=== PATIENT | female | born 1985 | race Caucasian/White ===

== ENCOUNTER 2023-04-15 09:17 | Emergency (ER) | payer OTHER, SELFPAY ==
--- NOTE | ~2023-04-15 | CT_ITS ---
EXAMINATION: CT soft tissue neck w con DATE: 04/15/2023 10:55 INDICATION: Right neck swelling. Strep throat. TECHNIQUE: Computed tomography (CT) of the neck was performed with 75 mL Omnipaque-350 intravenous co ntrast. Automated exposure control and iterative reconstruction technique were employed. The dose-judah gth product was 534.33 mGy-cm. COMPARISON: None FINDINGS: There is enlargement of right palatine tonsil. There is a 6 mm peritonsillar abscess. The u vula is enlarged. There are no pathologically enlarged lymph nodes. There is mild mucosal thickening in the paranasal sinuses. The mastoid air cells are normal. There is mild cervical spondylosis. IMPRESSION: 1. Enlarged right palatine tonsil and uvula with 6 mm right peritonsillar abscess. Reviewed, dictated and finalized at location A. IMPRESSION: 1. Enlarged right palatine tonsil and uvula with 6 mm right peritonsillar absce ss.
[2023-04-15 09:17] VITALS: BP 118/73; PULSE 70; RESP 14; TEMP 36.5; O2SAT 100
[2023-04-15] MEDS: SODIUM CHLORIDE 0.9% IV 1,000 ML 999 ML IV CONT (09:45)
[2023-04-15 10:13] VITALS: BP 133/78; PULSE 67; RESP 18; O2SAT 100
[2023-04-15 10:19] LABS: Basophils Percent Auto 0.3 % (0.2-1.2); Eosinophils Percent Auto 0.3 % (0-4.4); Hematocrit 38.2 % (37.0-47.0); Hemoglobin 12.5 g/dL (12.0-15.0); Immature Granulocyte Absolute 0.08 K/mm3 (0.00-0.031); Immature Granulocyte Percent A 0.7 % (0-0.5); Lymphocytes Percent Auto 6.6 % (18.3-44.2); Mean Corpuscular HGB Conc 32.7 g/dl (32-36); Mean Corpuscular Hemoglobin 30.9 pg (26-34); Mean Corpuscular Volume 94.6 fl (80-100); Mean Platelet Volume 10.6 fl (7.4-10.4); Monocytes Absolute Auto 0.8 K/mm3 (0.1-0.6); Monocytes Percent Auto 6.8 % (2.6-8.5); Neutrophils Absolute Auto 10.4 K/mm3 (1.3-6.7); Neutrophils Percent Auto 85.3 % (45.5-73.1); Platelet Count Result 165 k/mm3 (150-375); Red Blood Count 4.04 M/mm3 (4.2-5.4); Red Cell Distribution Width 11.9 % (11.5-14.5); White Blood Count 12.2 K/mm3 (4.5-10.0)
[2023-04-15 10:30] LABS: Alanine Aminotransferase 16 U/L (6-35); Albumin Level 3.9 g/dL (3.5-5.1); Alkaline Phosphatase 40 U/L (38-126); Anion Gap 4 mmol/L (8-16); Aspartate Amino Transferase 22 U/L (14-36); Blood Urea Nitrogen 11 mg/dL (7-17); Calcium 8.3 mg/dL (8.4-10.2); Carbon Dioxide 25 mmol/L (22-30); Chloride 104 mmol/L (98-107); Estimated CRCL calculation 108 ml/min; Estimated Glomerular Filt Rate > 60; Glucose 104 mg/dL (65-110); Potassium 3.7 mmol/L (3.4-5.0); Sodium 133 mmol/L (137-145)
--- NOTE | 2023-04-15 11:27 | ED.GENADULT ---
HPI - General Adult General Chief complaint: Unspecified Stated complaint: strep, right sided neck pain Time Seen by Provider: 04/15/23 09:27 History of Present Illness HPI narrative: Patient is a 37-year-old female who presents to the ER with sore throat. Ongoing over the last day. Was seen in urgent care and swabbed for strep which was positive. Due to pain over the right side of the patient's neck and her muffled voice she was sent here. No history of [employer]TE[employer] ENGINE[employer]. No difficulty with tolerating her current secretions though she does have pain with swallowing. She is having fevers. No chest pain. No stridor. Related Data Home Medications Medication Instructions Recorded Confirmed calcium carbonate 600 mg-vitamin 1 tablet PO DAILY 07/05/19 07/05/19 D3 10 mcg (400 unit) tablet (Calcium with Vitamin D) Allergies Allergy/AdvReac Type Severity Reaction Status Date / Time No Known Allergies Allergy Verified 04/15/23 09:22 Review of Systems Review of Systems: All systems reviewed & are unremarkable except as noted in HPI and below Constitutional: Constitutional: Reports chills and Reports fever(s) ENT: Denies nasal congestion, Reports neck pain, Reports sore throat and Reports throat swelling Cardiovascular: Cardiovascular: Denies chest pain and Denies rapid heart rate Respiratory: Respiratory: Denies cough, Denies dyspnea and Denies wheezing Gastrointestinal: Gastrointestinal: Denies abdominal pain, Denies nausea and Denies vomiting PMFSH Past Medical History Medical History (Updated 04/15/23 @ 19:49 by Jaya Rushing MD) Healthy female adult Surgical History Surgical History (Updated 04/15/23 @ 19:49 by Jaya Rushing MD) H/O hernia repair Family History Family History (Updated 03/22/17 @ 08:11 by DOCTOR UNKNOWN) Mother Family history of malignant neoplasm of breast in first degree relative Other Family history of malignant neoplasm Social History Social History Smoking status: Never smoker Alcohol intake: current Exam Narrative: GENERAL: Well-appearing, well-nourished, and in no acute distress. HEAD: Normocephalic, atraumatic. ENT: Mucous membranes moist. Mild erythema right tonsillar region with uvula midline and very edematous. No midline shift. Posterior oropharynx easily visualized. Tolerating oral secretions. NECK: Mild right-sided anterior cervical chain tenderness without swelling or redness of the skin. CHEST: Clear to auscultation. No respiratory distress. HEART: Regular rate and rhythm. Normal peripheral pulses. EXTREMITIES: Normal range of motion. No edema. SKIN: Warm, dry, no rash. NEURO: Alert and oriented x3. PSYCH: Normal mood and affect. Course Course Emergency Course: Discussed case with Dr. Burrows with ENT. Recommends discharging patient home with oral Solu-Medrol as he thinks continued steroid therapy may benefit patient's swelling. He does not feel the [employer]INE[employer] is large enough to drain at this time and patient should be started on Augmentin. He would like the patient to follow-up in 2 days. Return precautions discussed with the patient who verbalized understanding as did her . Vital Signs Vital signs: Vital Signs Temperature 97.7 F 04/15/23 09:17 Pulse Rate 70 04/15/23 09:17 Respiratory Rate 14 04/15/23 09:17 Blood Pressure 118/73 04/15/23 09:17 Pulse Oximetry 100 04/15/23 09:17 Oxygen Delivery Room Air 04/15/23 09:17 Temperature 97.7 F 04/15/23 09:17 Pulse Rate 74 04/15/23 11:35 Respiratory Rate 16 04/15/23 11:35 Blood Pressure 117/75 04/15/23 11:35 Pulse Oximetry 98 04/15/23 11:35 Oxygen Delivery Room Air 04/15/23 09:17 Medical Decision Making Vital Signs Vital Signs: Vital Signs Temperature 97.7 F 04/15/23 09:17 Pulse Rate 70 04/15/23 09:17 Respiratory Rate 14 04/15/23 09:17 Blood Pressure 118/73 04/15/23 09:17 Pulse Oximetry 100 04/15/23 09:17
[2023-04-15 11:35] VITALS: BP 117/75; PULSE 74; RESP 16; O2SAT 98
== END 2023-04-15 13:19 | disposition home or self-care (01) ==
PROVIDERS: Emergency Provider Emergency Medicine
DX: J36 Peritonsillar abscess (principal); K12.2 Cellulitis and abscess of mouth
CPT/HCPCS: 36415; 70491; 80053; 81025; 85025; 96361; 96374; 99284; J1100; J7030; Q9967

== ENCOUNTER 2023-04-21 12:05 | Emergency (ER) | payer OTHER, SELFPAY ==
--- NOTE | ~2023-04-21 | CT_ITS ---
EXAMINATION: CT soft tissue neck w con DATE: 04/21/2023 14:15 INDICATION: Right-sided throat swelling and pain. TECHNIQUE: Computed tomography (CT) of the neck was performed with 75 mL Omnipaque-350 intravenous co ntrast. Automated exposure control and iterative reconstruction technique were employed. The dose-judah gth product was 509.31 mGy-cm. COMPARISON: Neck CT 04/16/2023 FINDINGS: There is enlargement of the right palatine tonsil and soft palate with central low attenuat ion measuring 14 x 8 mm, consistent with abscess. There are no pathologically enlarged lymph nodes. T here is plaque in the proximal internal carotid arteries with 0% stenosis relative to normal distal a rtery lumen diameters. There is mild mucosal thickening in the paranasal sinuses. The mastoid air alvarado ls are normal. There is mild cervical spondylosis. IMPRESSION: 1. Enlargement of the right palatine tonsil and soft palate with 14 x 8 mm abscess with interval wors ening. Reviewed, dictated and finalized at location A. IMPRESSION: 1. Enlargement of the right palatine tonsil and soft palate with 14 x 8 mm absc ess with interval worsening.
[2023-04-21 12:06] VITALS: BP 120/77; PULSE 61; RESP 16; TEMP 36.4; O2SAT 97
--- NOTE | 2023-04-21 12:55 | ED.GENADULT ---
HPI - General Adult General Chief complaint: Unspecified Stated complaint: strep, throat abcess Time Seen by Provider: 04/21/23 12:54 History of Present Illness HPI narrative: Patient is a 37-year-old female with no significant past medical history here today with throat swelling and difficulty swallowing. She was seen here approximately 1 week ago at that time she was diagnosed with a small peritonsillar abscess and strep throat and was started on Augmentin. She notes that she initially was feeling quite a bit better and did follow-up with the ENT last Saturday and they noted that everything looked great at that time. Over the last few days she has now worsened. She notes that she feels similar to when she presented last week with throat swelling and difficulty swallowing. She notes significant pain with swallowing. No shortness of breath or stridor. No fever chills. She continues to take her augmentin and is on the last day of her medrol dose pack. She notes that the pain and swelling seem to be isolated to the right side which is where it was located last week. No history of prior before last week. No history of poor dentition, recent dental procedures or recurrent dental infections. Related Data Home Medications Medication Instructions Recorded Confirmed calcium carbonate 600 mg-vitamin 1 tablet PO DAILY 07/05/19 07/05/19 D3 10 mcg (400 unit) tablet (Calcium with Vitamin D) Allergies Allergy/AdvReac Type Severity Reaction Status Date / Time No Known Allergies Allergy Verified 04/15/23 09:22 Review of Systems Review of Systems: CONSTITUTIONAL: Denies fever, chills, or sweats. EYES: Denies visual changes, redness, or discharge. ENT: Denies rhinorrhea, congestion. Has sore throat and difficulty swallowing. No stridor. CARDIOVASCULAR: Denies chest pain, palpitations, or edema. RESPIRATORY: Denies cough or dyspnea. GASTROINTESTINAL: Denies abdominal pain, nausea, vomiting, or diarrhea. SKIN: Denies rash or itching. MUSCULOSKELETAL: Denies back pain, joint pain, or myalgia. NEUROLOGIC: Denies headache, numbness, or weakness. [facility] Past Medical History Medical History (Updated 04/21/23 @ 15:13 by Yecenia Campbell MD) Healthy female adult Surgical History Surgical History (Updated 04/15/23 @ 19:49 by Jaya Rushing MD) H/O hernia repair Family History Family History (Updated 03/22/17 @ 08:11 by DOCTOR UNKNOWN) Mother Family history of malignant neoplasm of breast in first degree relative Other Family history of malignant neoplasm Social History Social History Smoking status: Never smoker Alcohol intake: current Exam Narrative: GENERAL: Well-appearing, well-nourished, and in no acute distress. HEAD: Normocephalic, atraumatic. EYES: PERRLA and EOMI. ENT: Nares clear. Mucous membranes moist. Peritonsillar fullness on the right side with rightward deviation of the uvula. Trismus present. Right anterior cervical lymphadenopathy. NECK: Supple. CHEST: Clear to auscultation. No respiratory distress. HEART: Regular rate and rhythm. Normal peripheral pulses. ABDOMEN: Soft, nontender, nondistended. EXTREMITIES: Normal range of motion. No edema. SKIN: Warm, dry, no rash. NEURO: No focal deficits. Alert and oriented x3. PSYCH: Normal mood and affect. Course Course Emergency Course: Chart review performed. Patient was seen here on 04/15 for strep through and peritonsilar abscess. CT performed during that ED visit shows 6mm right peritonsillar abscess. She was discharged on Augmentin, norco and medrol dose pack. She was referred to Dr. Fernando Burrows, ENT. Nursing note today notes worsening pain. Patient seen evaluated, nontoxic appearing, in no acute distress. She does appear to have some voice changes and peritonsillar fullness on the right side. Given recurrent nature believe that repeat lab work and imaging is warranted prior to possible discussion with ENT. Patient is ad
[2023-04-21] MEDS: MORPHINE SULFATE (*CRX) 4 MG/ML INJ IV PUSH (13:20)
[2023-04-21] MEDS: ONDANSETRON INJ 4 MG/2 ML VIAL IV PUSH (13:20)
[2023-04-21 13:22] LABS: Basophils Percent Auto 0.4 % (0.2-1.2); Eosinophils Percent Auto 0.4 % (0-4.4); Hemoglobin 13.6 g/dL (12.0-15.0); Immature Granulocyte Absolute 0.05 K/mm3 (0.00-0.031); Immature Granulocyte Percent A 0.4 % (0-0.5); Lymphocytes Absolute Auto 1.53 K/mm3 (0.9-3.2); Lymphocytes Percent Auto 13.7 % (18.3-44.2); Mean Corpuscular HGB Conc 32.4 g/dl (32-36); Mean Corpuscular Hemoglobin 30.6 pg (26-34); Mean Corpuscular Volume 94.4 fl (80-100); Mean Platelet Volume 10.2 fl (7.4-10.4); Monocytes Percent Auto 8.6 % (2.6-8.5); Neutrophils Absolute Auto 8.6 K/mm3 (1.3-6.7); Neutrophils Percent Auto 76.5 % (45.5-73.1); Platelet Count Result 234 k/mm3 (150-375); Red Blood Count 4.45 M/mm3 (4.2-5.4); Red Cell Distribution Width 11.8 % (11.5-14.5); White Blood Count 11.2 K/mm3 (4.5-10.0)
[2023-04-21 13:36] LABS: Alanine Aminotransferase 15 U/L (6-35); Albumin Level 4.2 g/dL (3.5-5.1); Alkaline Phosphatase 47 U/L (38-126); Anion Gap 4 mmol/L (8-16); Aspartate Amino Transferase 20 U/L (14-36); Bilirubin,Total 0.8 mg/dL (0.2-1.3); Blood Urea Nitrogen 11 mg/dL (7-17); Calcium 8.8 mg/dL (8.4-10.2); Carbon Dioxide 28 mmol/L (22-30); Chloride 101 mmol/L (98-107); Estimated CRCL calculation 108 ml/min; Estimated Glomerular Filt Rate > 60; Glucose 84 mg/dL (65-110); Potassium 3.8 mmol/L (3.4-5.0); Sodium 133 mmol/L (137-145)
[2023-04-21 15:44] VITALS: BP 114/81; PULSE 65; RESP 15; O2SAT 96
== END 2023-04-21 15:46 | disposition home or self-care (01) ==
PROVIDERS: Emergency Provider Student in an Organized Health Care Education/Training Program
DX: J36 Peritonsillar abscess (principal)
CPT/HCPCS: 36415; 70491; 80053; 81025; 85025; 86140; 96374; 96375; 99284; J1100; J2270; J2405; Q9967

== ENCOUNTER 2024-07-17 13:31 | Outpatient (CLI) | payer OTHER, SELFPAY ==
--- NOTE | ~2024-07-17 | MM_ITS ---
EXAMINATION: MM screening kavitha BI w greer HISTORY: Screening mammogram, family history of breast cancer in her mother. TECHNIQUE: Craniocaudal and mediolateral oblique 3-D tomosynthesis images were obtained and synthetic 2-D images were generated. CAD analysis was submitted and interpreted. COMPARISON: No prior mammogram is available for comparison at this institution. BREAST PARENCHYMAL COMPOSITION:Not Dense. There are scattered areas of fibroglandular density. FINDINGS: No suspicious mass, calcification, or architectural distortion are identified in either zahida ast to suggest malignancy. There has been no suspicious interval change. IMPRESSION: No mammographic evidence of malignancy. Recommend routine screening mammography in one year. BI-RADS Category 1: Negative Reviewed, dictated and finalized at location . L [employer]RAFT[employer]
== END 2024-07-17 13:32 | disposition home or self-care (01) ==
LOC: MICIMG 13:32
PROVIDERS: PCP Obstetrics & Gynecology Gynecology; Visit Provider Internal Medicine
DX: Z12.31 Encounter for screening mammogram for malignant neoplasm of breast (principal)
CPT/HCPCS: 77063; 77067